=== PATIENT | male | born 1980 | race Caucasian/White ===

== ENCOUNTER 2020-11-06 21:12 | Emergency (ER) | payer OTHER ==
[~2020-11-06] VITALS: Ht 167.6 cm; Wt 99.8 kg
[2020-11-07] MEDS ORDERED: KETO10TA2 PO (02:59)
[2020-11-07] MEDS ORDERED: NORFLEX100MG PO (02:59)
[2020-11-14] MEDS ORDERED: ACETAMINOPHEN650 M2 (05:42)
[2020-11-14] MEDS ORDERED: NASAL MIST126 ML (05:42)
== END 2020-11-07 03:29 | disposition home or self-care (01) ==
LOC: ER 21:12
DX: M54.5 Low back pain (principal)

== ENCOUNTER 2021-07-10 09:13 | Emergency (ER) | payer OTHER ==
[~2021-07-10] VITALS: Ht 175.3 cm; Wt 85.3 kg
[~2021-07-10 09:13] MED LIST: ACETAMINOPHEN650 M2; KETO10TA2 PO; NASAL MIST126 ML; NORFLEX100MG PO
== END 2021-07-10 14:47 | disposition home or self-care (01) ==
LOC: ER 09:13
DX: R07.9 Chest pain, unspecified (principal)

== ENCOUNTER 2025-03-19 18:42 | Inpatient (IN) | payer OTHER ==
[~2025-03-19] VITALS: Ht 167.6 cm; Wt 109.8 kg
[2025-03-19] MEDS ORDERED: AMLODIPINE-OLM1 EACH PO (20:54)
[2025-03-19] MEDS ORDERED: CARVEDILOL12.5 M1 PO (20:55)
--- NOTE | 2025-03-19 20:56 | NUR ---
PACIENTE REFIERE FIEBRE Y MALESTAR ASOCIADO CON GRIPE. SE MIDEN VITALES Y SE UBICA EN MARY.
--- NOTE | 2025-03-19 21:13 | NUR ---
SE ORIENTA A PACIENTE SOBRE ORDEN MEDICA EL MISMO REFIERE ENTENDER Y ACEPTA.
[2025-03-19 22:04] LABS: BASO % 0.3 % (0.1-1.2); EOS # 0.00 (0.04-0.54); EOS % 0.0 % (0.7-7.0); LYMPH # 0.98 (1.18-3.74); LYMPH % 4.4 % (19.3-53.1); MEAN PLATELET VOLUME 9.80 fl (9.4-12.4); MONO # 0.88 (0.24-0.82); MONO % 4.0 % (4.7-12.5); NEUT # 20.00 (1.56-6.13); NEUT % 90.7 % (34.0-71.1); RED CELL DISTRIBUTION WIDTH 11.4 % (11.6-14.4)
[2025-03-19 22:13] LABS: URINE APPEARANCE Clear; URINE BILIRRUBIN Negative (NEGATIVE); URINE BLOOD Small; URINE COLOR Yellow; URINE KETONE Trace (NEGATIVE); URINE LEUKOCYTE Negative; URINE NITRATE Negative; URINE UROBILINOGEN 1.0 E.U./dl
[2025-03-19 22:17] LABS: URINE BACTERIA 11.4 uL (0.0-1933); URINE EPITHELIAL CELLS 5.1 uL (0.0-38.8); URINE RBC 29.6 uL (0.0-20.8); URINE WBC 3.5 uL (0.0-23.2)
[2025-03-19 22:18] LABS: URINE CAST 0.00 uL (0.0-1.40); URINE GLUCOSE >=1000 MG/DL (NEGATIVE); URINE PROTEIN 300 (NEGATIVE)
[2025-03-19] MEDS ORDERED: 0.9 % SODIUM CHLORIDE 1,000 ML IV STA (22:23)
[2025-03-19 22:24] LABS: ERYTHROCYTE SEDIMENTATION RATE 19 mm/hr (0-15)
[2025-03-19 22:30] LABS: INR 1.17
[2025-03-19 22:34] LABS: ALT/SGPT 32.0 U/L (12-78); AST/SGOT 15.0 U/L (15-37); BILIRUBIN TOTAL 0.9 mg/dL (0.3-1.2); BUN CREA RATIO 12.0 (7.0-25.0); CREATININE SERUM 1.21 mg/dL (0.70-1.30); GFR 65.14; GLOBULINA 4.3 G/DL (2.4-3.5)
[2025-03-19 22:35] LABS: GLUCOSE FASTING 300.0 mg/dL (65-100); OSMOLALITY SERUM 284.0 MOSM/KG (275-295)
[2025-03-19] MEDS ORDERED: ACETAMINOPHEN 500 MG GEL..CAP PO SCH (23:29)
[2025-03-19] MEDS ORDERED: FAMOTIDINE/PF 20 MG in 0.9 % SODIUM CHLORIDE 100 ML IV SCH (23:29)
[2025-03-20] MEDS ORDERED: PIPERACILLIN/TAZOBACTAM SODIUM 3.375 GM in 0.9 % SODIUM CHLORIDE 100 ML IV SCH
[2025-03-20 04:41] VITALS: BP 128/80; O2SAT 95
[2025-03-20 06:32] VITALS: BP 155/97; O2SAT 95
[2025-03-20] MEDS ORDERED: CARVEDILOL 6.25 MG TABLET PO SCH (09:00)
[2025-03-20] MEDS ORDERED: AMLODIPINE BESYLATE 5 MG TABLET PO SCH (09:00)
[2025-03-20] MEDS ORDERED: CARVEDILOL 12.5 MG TABLET PO SCH (09:00)
[2025-03-20 09:46] VITALS: BP 118/72; O2SAT 99
[2025-03-20] MEDS ORDERED: PIPERACILLIN/TAZOBACTAM SODIUM 3.375 GM VIAL IV ONE (16:00)
[2025-03-20 20:10] VITALS: BP 140/80
[2025-03-21 03:10] VITALS: BP 128/85; O2SAT 97
[2025-03-21 08:31] LABS: BASO % 0.2 % (0.1-1.2); EOS # 0.15 (0.04-0.54); EOS % 1.1 % (0.7-7.0); LYMPH # 2.36 (1.18-3.74); LYMPH % 17.4 % (19.3-53.1); MEAN PLATELET VOLUME 10.10 fl (9.4-12.4); MONO # 1.30 (0.24-0.82); MONO % 9.6 % (4.7-12.5); NEUT # 9.66 (1.56-6.13); NEUT % 71.2 % (34.0-71.1); RED CELL DISTRIBUTION WIDTH 11.8 % (11.6-14.4)
[2025-03-21] MEDS ORDERED: TERBINAFINE HCL 15 GM CREAM..G. TOP SCH (17:00)
[2025-03-21 19:35] VITALS: BP 148/103; O2SAT 97
[2025-03-22] MEDS ORDERED: DEXTROSE 50 % IN WATER 0.5 G/ML DISP.SYRIN IV PRN (08:15)
[2025-03-22] MEDS ORDERED: INSULIN LISPRO 1,000 UNIT/10 ML UNITS SUBCUTANEO PRN (08:15)
[2025-03-22 10:02] VITALS: BP 135/96; O2SAT 97
== END 2025-03-22 11:23 | disposition home or self-care (01) | DRG 602 ==
LOC: ER 18:43 → MEDJ 03-20 01:46
PROVIDERS: Physician Assistant Medical; ADMIT Student in an Organized Health Care Education/Training Program; ATTEND Student in an Organized Health Care Education/Training Program
DX: L03.116 Cellulitis of left lower limb (principal); A41.9 Sepsis, unspecified organism; B35.3 Tinea pedis; F41.9 Anxiety disorder, unspecified